=== PATIENT | female | born 1985 | race Caucasian/White ===

== ENCOUNTER 2017-06-16 10:38 | Emergency (ER) | payer SELFPAY ==
[~2017-06-16] VITALS: Ht 165.1 cm; Wt 56.5 kg
[2017-06-16 11:07] VITALS: BP 130/71
== END 2017-06-16 12:45 | disposition left against medical advice (07) ==
LOC: EME 10:38
DX: S49.92XA Unspecified injury of left shoulder and upper arm, initial encounter (principal); Z53.21 Procedure and treatment not carried out due to patient leaving prior to being seen by health care provider

== ENCOUNTER 2017-09-13 20:25 | Emergency (ER) | payer OTHER ==
[~2017-09-13] VITALS: Ht 165.1 cm; Wt 57.2 kg
[2017-09-13 22:01] LABS: HEMATOCRIT 37.3 % (36.0-46.0); MCH 31.1 PG (29.0-34.0); MCHC 34.9 G/DL (30.0-36.0); MCV 89.2 FL (83-99); PLATELET COUNT 199 K/uL (156-360); RBC DIS.WIDTH-CV 12.8 % (11.8-14.6); RBC DIS.WIDTH-SD 41.9 % (39-53); RED BLOOD COUNT 4.18 M/uL (3.80-5.20); WHITE BLOOD COUNT 7.2 K/uL (4.1-10.2)
[2017-09-13 22:11] LABS: CHLORIDE 108 mEq/L (99-109); POTASSIUM 3.7 mEq/L (3.7-5.4); SODIUM 142 mEq/L (136-147)
[2017-09-13 22:12] LABS: GLUCOSE 87 mg/dL (70-99)
[2017-09-13 22:16] LABS: CREATININE 0.7 mg/dL (0.6-1.3); GFR ESTIMATE (CALCULATED) > 59 mL/min/
[2017-09-13 22:17] LABS: UREA NITROGEN (BUN) 6 mg/dL (9-23)
[2017-09-13] MEDS ORDERED: ROBITUSSIN AC,T10 ML PO (22:54)
[2017-09-13] MEDS ORDERED: VENTOLIN HFA18 GM IH (22:54)
[2017-09-13] MEDS ORDERED: ZITHROMAX Z-PA250 MG PO (22:54)
[2017-09-13 23:30] VITALS: BP 115/73
== END 2017-09-13 22:55 | disposition home or self-care (01) ==
LOC: EME 20:25 → EXP 20:25
PROVIDERS: Physician Assistant
DX: J20.9 Acute bronchitis, unspecified (principal); F17.200 Nicotine dependence, unspecified, uncomplicated; Z98.51 Tubal ligation status; Z86.018 Personal history of other benign neoplasm; Z90.49 Acquired absence of other specified parts of digestive tract
CPT/HCPCS: 71046; 80048; 85027; 94640; 99281; 99283

== ENCOUNTER 2017-09-17 09:06 | Emergency (ER) | payer OTHER ==
[~2017-09-17] VITALS: Ht 165.1 cm; Wt 56.8 kg
[~2017-09-17 09:06] MED LIST: ROBITUSSIN AC,T10 ML PO; VENTOLIN HFA18 GM IH; ZITHROMAX Z-PA250 MG PO
[2017-09-17] MEDS ORDERED: LEVAQUIN500 MG PO (11:28)
[2017-09-17] MEDS ORDERED: PREDNISONE50 MG PO (11:28)
[2017-09-17 11:35] VITALS: BP 118/62
== END 2017-09-17 12:01 | disposition home or self-care (01) ==
LOC: EME 09:06
DX: J20.9 Acute bronchitis, unspecified (principal); R06.2 Wheezing; F17.210 Nicotine dependence, cigarettes, uncomplicated; Z90.49 Acquired absence of other specified parts of digestive tract; Z98.51 Tubal ligation status
CPT/HCPCS: 71046; 71250; 94640; 99281; 99284; J7512